=== PATIENT | female | born 2000 | race Asian ===

== ENCOUNTER 2022-06-11 20:28 | Emergency (ER) | payer BC ==
[~2022-06-11] VITALS: Ht 154.9 cm; Wt 46.1 kg
[2022-06-11 22:27] LABS: RSV AMPLIFICATION NEGATIVE (NEGATIVE)
[2022-06-11 23:49] VITALS: BP 104/70
[2022-06-11] MEDS ORDERED: IBUPROFEN 600MG TAB PO ONE (23:50)
== END 2022-06-12 00:27 | disposition home or self-care (01) ==
LOC: M ED 20:28
DX: R51.9 Headache, unspecified (principal)